=== PATIENT | male | born 1990 | race Caucasian/White ===

== ENCOUNTER 2023-11-05 09:28 | Outpatient (CLI) | payer BC, SELFPAY ==
[2023-11-05 10:09] LABS: Alanine Aminotransferase 38 U/L (6-50); Albumin Level 4.5 g/dL (3.5-5.1); Alkaline Phosphatase 63 U/L (38-126); Anion Gap 8 mmol/L (4-12); Aspartate Amino Transferase 45 U/L (17-59); Bilirubin,Total 0.6 mg/dL (0.2-1.3); Blood Urea Nitrogen 16 mg/dL (9-20); Calcium 9.3 mg/dL (8.4-10.2); Carbon Dioxide 29 mmol/L (22-30); Chloride 100 mmol/L (98-107); Cholesterol 130 mg/dL (0-200); Estimated Glomerular Filt Rate > 60; Glucose 93 mg/dL (65-110); HDL Direct 41 mg/dL; Potassium 4.2 mmol/L (3.4-5.0); Sodium 137 mmol/L (137-145); Triglycerides 63 mg/dL (<150)
[2023-11-05 10:20] LABS: LDL Cholesterol Direct 71 mg/dL
[2023-11-10 04:13] LABS: Immunoglobulin A 218 mg/dL (47-310); TTG IGA AB <1.0 U/mL
== END 2023-11-05 09:29 | disposition home or self-care (01) ==
PROVIDERS: PCP Family Medicine; Visit Provider Physician Assistant Medical
DX: E78.2 Mixed hyperlipidemia (principal); R10.9 Unspecified abdominal pain
CPT/HCPCS: 36415; 80053; 80061; 82784; 86364

== ENCOUNTER 2023-11-12 10:13 | Outpatient (CLI) | payer BC, SELFPAY ==
[2023-11-12 10:43] LABS: Hematocrit 45.3 % (42.0-52.0); Hemoglobin 15.4 g/dL (14.0-18.0); Mean Corpuscular Hemoglobin 30.2 pg (26-34); Mean Corpuscular Volume 88.8 fl (80-100); Mean Platelet Volume 10.4 fl (7.4-10.4); Platelet Count Result 234 k/mm3 (150-375); Red Cell Distribution Width 12.3 % (11.5-14.5); White Blood Count 8.7 K/mm3 (4.5-10.0)
[2023-11-12 10:55] LABS: CRP < 0.5 mg/dL (<1.0)
[2023-11-12 11:22] LABS: Erythrocyte Sedimentation Rate 12 mm/hr (0-20)
[2023-11-14 10:38] LABS: Endomysial Ab (IgA) Screen NEGATIVE (NEGATIVE)
[2023-11-14 17:28] LABS: Almond (F20) IgE <0.10 kU/L; Cashew Nut (F202) IgE <0.10 kU/L; Cashew Nut (F202) IgE Class 0; Codfish (F3) IgE <0.10 kU/L; Codfish (F3) IgE Class 0; Cow's Milk (F2) IgE Class 0/1; Egg White (F1) IgE <0.10 kU/L; Egg White (F1) IgE Class 0; Hazelnut (F17) IgE <0.10 kU/L; Hazelnut (F17) IgE Class 0; Peanut (F13) IgE <0.10 kU/L; Peanut (F13) IgE Class 0; Salmon (F41) IgE <0.10 kU/L; Salmon (F41) IgE Class 0; Scallop (F338) IgE 1.05 kU/L; Scallop (F338) IgE Class 2; Sesame Seed <0.10 kU/L; Shrimp (F24) IgE 4.25 kU/L; Soybean (F14) IgE <0.10 kU/L; Soybean (F14) IgE Class 0; Tuna (F40) <0.10 kU/L; Tuna (F40) Class 0; Walnut (F256) IgE <0.10 kU/L; Walnut (F256) IgE Class 0; Wheat (F4) IgE 0.38 kU/L; Wheat (F4) IgE Class 1
[2023-11-18 11:28] LABS: Endomysial Additional Testing Not Indicated
[2023-11-25 10:13] LABS: Gliadin Gluten IgA 19.1
== END 2023-11-12 10:14 | disposition home or self-care (01) ==
LOC: ANHLAB 10:16
PROVIDERS: PCP Family Medicine; Visit Provider Nurse Practitioner
DX: K52.9 Noninfective gastroenteritis and colitis, unspecified (principal); R10.9 Unspecified abdominal pain
CPT/HCPCS: 36415; 84443; 85027; 85652; 86003; 86140; 86255; 86364

== ENCOUNTER 2024-01-07 02:07 | Day surgery (SDC) | payer BC, SELFPAY ==
[2024-01-01 09:34] VITALS: BMI 28.1
[2024-01-07 11:05] VITALS: BMI 27.6
[2024-01-07 11:06] VITALS: BP 121/75; PULSE 54; RESP 18; TEMP 36.7; O2SAT 100
[2024-01-07] MEDS: LACTATED RINGERS 1,000 ML 150 ML IV CONT (11:22)
--- NOTE | 2024-01-07 11:40 | WPDANESEPPF ---
Anes - Initial Pre Proc Eval Procedure: Operation Date: 01/07/24 12:30 Proposed Procedures p Esophagogastroduodenoscopy - Usama Son MD Date/Time: 01/07/24 11:40 Surgeon: Usama Son MD Pre Op Diagnosis: abd pain, noninfective gastroenteritis and colitis Patient Data Age: 33 Gender: M Height: 1.78 m Weight: 87.5 kg Last Vital Signs Temp 36.7 C 01/07/24 11:06 Pulse 54 L 01/07/24 11:06 Resp 18 01/07/24 11:06 BP 121/75 01/07/24 11:06 Pulse Ox 100 01/07/24 11:06 O2 Del Method Room Air 01/07/24 11:06 Allergies Allergy/AdvReac Type Severity Reaction Status Date / Time Penicillins Allergy Severe Swelling Verified 01/01/24 09:32 shellfish derived Allergy Severe Swelling Verified 01/07/24 07:15 of Lip/Tongue/Throat Home Medications Medication Instructions Recorded Confirmed Type No Home Medications 11/01/22 01/07/24 History Patient hx anesthesia problems: none Family hx anesthesia problems: none Results Review: All pre-operative results and documents have been reviewed as part of the pre-operative evaluation. [facility] Past Medical History Medical History Broken nose Surgical History Surgical History Hx of LASIK 06/29/21 Family History Family History Other Heart disease Social History Social History Smoking status: Never smoker Second hand tobacco smoke exposure: No Alcohol intake: current Drinks per week: 1 Alcohol use details: socially Substance use: never Substance use type: does not use Lack of Transportation: No Lack of Food: Never True Current Housing: I Have Housing Concerned About Future Housing: No Difficulty Paying Gas/Electric Bills: No Difficulty Paying for Meds: No Currently Unemployed: No Education: Associate Degree Difficulty w/ Childcare or Family Care: No Living arrangements: with family Occupation/Education: occupation 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 [employer] Gender identity (if verbalized by the patient): Male Sexual Orientation (if Verbalized by the Patient): Straight or Heterosexual Spiritual care concerns: No Agree to blood products: Yes Anes - Eval Final PreProcedure Day of Procedure 01/07/24 11:40 Patient weight: overweight Heart: regular rate and rhythm Lungs: clear to auscultation Airway: Mallampati scale class 1 Neurological: alert and oriented Last oral intake: >/= 8 hours ASA classification: II Emergent: no Anesthetic plan: proceed Results Review: All pre-operative results and documents have been reviewed as part of the pre-operative evaluation. Informed Consent: The patient's anesthetic plan and its attendant risks and benefits were discussed with the patient/family/POA. Questions were solicited and answers provided to the satisfaction of the patient/family/POA.
--- NOTE | 2024-01-07 11:58 | P.HP_ITS ---
History of Present Illness History of Present Illness Consent: Risks, benefits, and alternatives have been discussed and questions answered. Patient agrees to proceed with procedure. Chief complaint: abd pain, noninfective gastroenteritis and colitis Narrative: Regis Lincoln is a 33 year old male with abdominal pain, better after avoid gluten, never had EGD. Serology for celiac negative, he has family h/o celiac. Review of Systems Review of Systems: All systems reviewed & are unremarkable except as noted in HPI and below PMFSH Past Medical History Medical History Broken nose Surgical History Surgical History Hx of LASIK 06/29/21 Family History Family History Other Heart disease Social History Social History Smoking status: Never smoker Second hand tobacco smoke exposure: No Alcohol intake: current Drinks per week: 1 Alcohol use details: socially Substance use: never Substance use type: does not use Lack of Transportation: No Lack of Food: Never True Current Housing: I Have Housing Concerned About Future Housing: No Difficulty Paying Gas/Electric Bills: No Difficulty Paying for Meds: No Currently Unemployed: No Education: Associate Degree Difficulty w/ Childcare or Family Care: No Living arrangements: with family Occupation/Education: occupation 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 [employer] Gender identity (if verbalized by the patient): Male Sexual Orientation (if Verbalized by the Patient): Straight or Heterosexual Spiritual care concerns: No Agree to blood products: Yes Meds Home Medications and Allergies Home Medications Medication Instructions Recorded Confirmed Type No Home Medications 11/01/22 01/07/24 History Allergies Allergy/AdvReac Type Severity Reaction Status Date / Time Penicillins Allergy Severe Swelling Verified 01/01/24 09:32 shellfish derived Allergy Severe Swelling Verified 01/07/24 07:15 of Lip/Tongue/Throat Vital Signs Vital Signs - 24 hr 01/07/24 11:06 Temperature 98.1 F Pulse Rate 54 L Respiratory Rate 18 Blood Pressure 121/75 Pulse Oximetry 100 Oxygen Delivery Room Air Exam Const: General: comfortable and no acute distress HENMT: Face/Nose/Sinus: Normal nares present Eyes: General: appearance normal, both eyes and all related structures Neck: Neck: no JVD Resp: Auscultation: clear to auscultation bilaterally Cardio: Rate: regular rate Rhythm: regular rhythm GI: Inspection: non-distended GI Palp: Yes Soft to palpation Skin: General skin exam: normal color Neuro: General: gait normal Speech: normal speech Extrem: General: normal to inspection Psych: Mental Status: mental status grossly normal Assessment and Plan Assessment and plan (1) Abdominal cramping: Code(s): R10.9 - Unspecified abdominal pain Status: Acute Assessment and Plan: egd with bx (2) Family history of celiac disease: Code(s): Z83.79 - Family history of other diseases of the digestive system Status: Acute
[2024-01-07 12:05] VITALS: BP 109/51; PULSE 46; RESP 14; O2SAT 99
[2024-01-07 12:15] VITALS: BP 105/52; PULSE 57; RESP 14; O2SAT 100
[2024-01-07 12:25] VITALS: BP 115/59; PULSE 62; RESP 18; O2SAT 100
== END 2024-01-07 12:30 | disposition home or self-care (01) ==
PROVIDERS: PCP Family Medicine; Referring Provider Nurse Practitioner; Visit Provider Internal Medicine Gastroenterology
PROC: 0DJ08ZZ Inspection of Upper Intestinal Tract, Via Natural or Artificial Opening Endoscopic (ICD-10-PCS; CPT 43235; principal; 2024-01-07 12:30)
DX: R10.9 Unspecified abdominal pain (principal); Z98.890 Other specified postprocedural states; Z83.79 Family history of other diseases of the digestive system; Z82.49 Family history of ischemic heart disease and other diseases of the circulatory system
CPT/HCPCS: 43239; 88305; J2704; J7120